=== PATIENT | female | born 1995 | race Caucasian/White ===

== ENCOUNTER 2020-10-07 11:28 | Outpatient (REF) | payer OTHER, SELFPAY ==
[2020-10-07 13:42] LABS: Hematocrit 43.5 % (37-47); Hemoglobin 14.2 g/dl (12.0-16.0); Mean Corpuscular HGB Conc 32.6 g/dl (31.0-35.0); Mean Corpuscular Hemoglobin 31.7 pg (27.0-33.0); Mean Corpuscular Volume 97.1 fL (80-98); Mean Platelet Volume 9.8 fL (9.4-12.3); Platelet Count 255 X10*3/uL (160-400); Red Blood Count 4.48 X10*6/uL (4.20-5.50); Red Cell Distribution Width 11.7 % (11.0-16.0); White Blood Count 10.4 X10*3/uL (4.8-10.8)
[2020-10-07 14:20] LABS: Alanine Aminotransferase 14 U/L (0-31); Albumin Level 4.6 g/dL (3.5-5.0); Alkaline Phosphatase 51 U/L (39-117); Anion Gap 13 (12-20); Aspartate Amino Transferase 19 U/L (5-31); Bilirubin Direct 0.2 mg/dL (0.0-0.5); Bilirubin Total 0.7 mg/dL (0.0-1.0); Blood Urea Nitrogen 20 mg/dL (9-16); Calcium 9.3 mg/dL (8.4-10.2); Carbon Dioxide 27 mmol/L (22-29); Chloride 101 mmol/L (96-108); Cholesterol 254 mg/dL; Estimated Glomerular Filt Rate > 60; Glucose Fasting 85 mg/dL (60-99); HDL Cholesterol 51 mg/dL; LDL Cholesterol Calculated 185 mg/dl; Potassium 5.2 mmol/L (3.3-5.1); Sodium 136 mmol/L (135-145); Total Protein 7.5 g/dL (6.5-8.0); Triglycerides 91 mg/dL
[2020-10-07 14:23] LABS: TSH reflex Free T4 0.36 uIU/mL (0.32-4.0)
== END 2020-10-07 11:29 | disposition home or self-care (01) ==
LOC: HO.WFDLDS 11:28
PROVIDERS: Visit Provider Hospitalist
DX: Z00.00 Encounter for general adult medical examination without abnormal findings (principal)
CPT/HCPCS: 36415; 80048; 80061; 80076; 84443; 85027

== ENCOUNTER 2020-12-05 08:15 | Outpatient (REF) | payer OTHER, SELFPAY ==
--- NOTE | ~2020-12-05 | XR_ITS ---
EXAMINATION: XR LUMBOSACRAL SPINE CLINICAL INFORMATION: Lower back pain COMPARISON: None TECHNIQUE: Three views of the lumbosacral spine. FINDINGS: There are 6 nonrib-bearing lumbar vertebral bodies. No fracture or subluxation. Vertebral body height and alignment are maintained. Disc spaces are maintained. The sacroiliac joints are symmetric. The visualized sacrum is intact. There is an IUD noted at the central pelvis. The bowel gas pattern is unremarkable. XR/XR lumbar spine 2-3V IMPRESSION: 6 nonrib-bearing lumbar vertebral bodies. Otherwise normal appearance.
== END 2020-12-05 08:16 | disposition home or self-care (01) ==
LOC: HO.HMGCX 08:15
PROVIDERS: PCP Hospitalist; Visit Provider Family Medicine
DX: M54.5 Low back pain (principal)
CPT/HCPCS: 72100

== ENCOUNTER 2021-02-21 11:20 | Outpatient (REF) | payer OTHER, SELFPAY | END 2021-02-21 11:21 | disposition home or self-care (01) | LOC: HO.LNP 11:20 | PROVIDERS: Visit Provider Hospitalist | DX: Z20.822 Contact with and (suspected) exposure to COVID-19 (principal); K52.9 Noninfective gastroenteritis and colitis, unspecified | CPT/HCPCS: U0003; U0005 ==

== ENCOUNTER → 2021-04-21 08:56 | Outpatient (REF) | payer OTHER, SELFPAY ==
--- NOTE | ~2021-04-21 | XR_ITS ---
EXAMINATION: XR SACRUM/COCCYX XR FOOT, LEFT CLINICAL INFORMATION: Low back pain. Left foot pain. Fall. COMPARISON: Lumbar spine radiographs dated 12/05/2020. TECHNIQUE: AP and lateral views of the sacrum and coccyx. AP, oblique, and lateral views of the left foot. FINDINGS: Sacrum and Coccyx: No acute fracture or subluxation. No joint space narrowing or marginal osteophytes. No osseous erosion. IUD within the pelvis. Left Foot: No acute fracture or dislocation. No joint space narrowing or marginal osteophytes. No osseous erosion. No abnormal soft tissue calcification. XR/XR foot LT min 3V IMPRESSION: SACRUM AND COCCYX: Unremarkable examination. LEFT FOOT: Unremarkable examination.
--- NOTE | ~2021-04-21 | XR_ITS ---
EXAMINATION: XR SACRUM/COCCYX XR FOOT, LEFT CLINICAL INFORMATION: Low back pain. Left foot pain. Fall. COMPARISON: Lumbar spine radiographs dated 12/05/2020. TECHNIQUE: AP and lateral views of the sacrum and coccyx. AP, oblique, and lateral views of the left foot. FINDINGS: Sacrum and Coccyx: No acute fracture or subluxation. No joint space narrowing or marginal osteophytes. No osseous erosion. IUD within the pelvis. Left Foot: No acute fracture or dislocation. No joint space narrowing or marginal osteophytes. No osseous erosion. No abnormal soft tissue calcification. XR/XR sacrum coccyx min 2V IMPRESSION: SACRUM AND COCCYX: Unremarkable examination. LEFT FOOT: Unremarkable examination.
--- NOTE | 2021-04-21 13:28 | ECG_ITS ---
Hook-up date: 2021-04-21 13:37:00 Duration: 41:07:00 Test Indications: TACHYCARDIA Medications: [id number] QRS complexes 7 Ventricular ectopics which represent <1 % of total QRS comp. * Supraventricular ectopics which represent % of total QRS comp. * Paced QRS complexs which represent % of total QRS comp. VENTRICULAR ECTOPY 7 Isolated 0 Bigeminal Cycles 0 Couplets 0 Runs 0 Beats in Runs * Beats LONGEST at * BPM at :: -- * Beats FASTEST at * BPM at :: -- SUPRAVENTRICULAR ECTOPY * Isolated * Couplets * Runs * Beats in Runs * Beats LONGEST at * BPM at :: -- * Beats FASTEST at * BPM at :: -- HEART RATES 50 MIN at 23:15:07 2021-04-21 77 AVG 128 MAX at 12:20:31 2021-04-22 LONGEST RR 1.2880 secs at 06:25:00 2021-04-22 S-T LEVELS Channel 1 - 128 mm at 13:37:00 2021-04-21 - 128 mm at 13:37:00 2021-04-21 Channel 2 - 128 mm at 13:37:00 2021-04-21 - 128 mm at 13:37:00 2021-04-21 Channel 3 - 128 mm at 03:25:61 -- - 128 mm at 03:25:61 Basic rhythm Normal sinus rhythm No long pause or profound bradycardia Rare Premature ventricular complexes Patient reported symptom correlated with NSR Referred By: Mike Carrizales Overread By: MELINA CARDENAS MD
== END ==
LOC: HO.CARD 08:56
PROVIDERS: PCP Family Medicine; Referring Provider Hospitalist; Visit Provider Family Medicine
DX: M54.5 Low back pain (principal); M79.672 Pain in left foot; R00.0 Tachycardia, unspecified
CPT/HCPCS: 72220; 73630; 93226

== ENCOUNTER → 2021-05-05 08:23 | Outpatient (BNVA) | payer OTHER, SELFPAY | PROVIDERS: PCP Family Medicine; Visit Provider Internal Medicine | DX: R07.2 Precordial pain (principal) | CPT/HCPCS: 99202 ==

== ENCOUNTER → 2021-06-04 08:27 | Outpatient (REF) | payer OTHER, SELFPAY ==
--- NOTE | 2021-06-04 08:30 | CA_ITS ---
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 The calculated ejection fraction is 64% by biplane method. - The basal inferior segment is hypokinetic. - No obvious valvular pathology seen on this study. Findings Left Ventricle Normal left ventricular cavity size. There is normal left ventricular wall thickness. The left ventricular systolic function is normal. The calculated ejection fraction is 64% by biplane method. Diastolic function is normal for age. Wall Motion Rest Echo Findings The basal inferior segment is hypokinetic. Right Ventricle Normal right ventricular cavity size and systolic function. Atria Both atria are normal in size. Aortic Valve There is a normal trileaflet aortic valve. There is no aortic valve stenosis. There is no aortic valve regurgitation. Mitral Valve The mitral valve appears normal. There is no mitral valve regurgitation. There is no mitral valve stenosis. Pulmonic Valve The pulmonic valve was not well visualized. Tricuspid Valve Normal tricuspid valve structure. There is no tricuspid valve regurgitation. The pulmonary artery systolic pressure is not calculated. Great Vessels The aortic annulus, sinuses of valsalva, and asc aorta are normal in size. Venous The inferior vena cava is normal in size and collapses greater than 50% with inspiration. Pericardium/Pleural There is a trivial pericardial effusion. Prior Study Comparison No prior study available for comparison. Recommendations, Care & Conclusions No obvious valvular pathology seen on this study. Measurements 2D Linear Measurements IVSd: 0.86 0.6-0.9/0.6-1.0 cm LVIDd: 4.87 3.9-5.3/4.2-5.9 cm LVIDd Index: 2.41 2.4-3.2/2.2-3.1 cm/m2 LVIDs: 3.70 2.0-3.6 cm LVPWd: 0.77 0.7-1.1 cm Ao Root: 3.20 2.1-3.5 cm LA Diam: 3.60 2.7-3.8/3.0-4.0 cm LAIDs Index: 1.78 1.5-2.3 cm/m2 LV Mass: 164.96 67-162/88-224 g LV Mass Index: 81.66 43-95/49-115 g/m2 LVOT Diam: 2.00 3.0+(-)1.3 cm 2D Systolic Function EF 4C: 63.60 >55% EF 2C: 63.00 >55% EF BiP: 64.30 >55% Mitral Valve MV Pk E: 0.82 MV PK A: 0.58 MV Decel Time: 155.00 E/A: 1.40 E'Lateral: 14.50 E'Medial: 10.40 E/E' Med: 7.90 E/E' Lat: 5.70 PHT: 45.00 MVA PHT: 4.89 Decel Lipscomb: 5.31 Aortic Valve AoV Pk Clint: 1.39 AoV Mn Clint: 0.98 AoV VTI: 0.26 AoV Pk Grad: 8.00 Aov Mn Grad: 4.00 ARCENIO Cont.VTI: 2.20 LVOT LVOT Pk Clint: 1.01 LVOT Mn Clint: 0.70 LVOT VTI: 0.18 LVOT Pk Grad: 4.00 LVOT Mn Grad: 2.00 LVOT Diam: 2.00 LVOT Area: 3.14 Diastolic Function MV Pk E: 0.82 MV Pk A: 0.58 E/A: 1.40 E'Medial: 10.40 E/E' Med: 7.90 E' Laterial: 14.50 E/E' Lat: 5.70 Right Ventricle TAPSE (mm): 2.39 TVS' Clint: 13.20 Tricuspid Valve RA Press: 3.00 Great Vessels Aorta Ao Root-2D: 3.20 2.0-3.7 cm Ao Asc: 3.20 2.1-3.4 cm Ao Arch: 1.90 Updated in Other Vendor System with Status of Final Arthur García MD electronically signed on 06/04/2021 12:58:43 PM with status of Final
== END ==
LOC: HO.CARD 08:27
PROVIDERS: Visit Provider Internal Medicine
DX: R07.2 Precordial pain (principal)
CPT/HCPCS: 93306

== ENCOUNTER 2021-06-06 14:08 | Outpatient (REF) | payer OTHER, SELFPAY ==
[2021-06-06 16:23] LABS: Influenza A PCR NEGATIVE (Negative); Influenza B PCR NEGATIVE (Negative); Resp Syncy Virus RNA Qual PCR NEGATIVE (Negative); SARS COV2 PCR INHOUSE NEGATIVE (Negative)
== END 2021-06-06 14:09 | disposition home or self-care (01) ==
LOC: HO.LNP 14:08
PROVIDERS: Visit Provider Family Medicine
DX: Z20.822 Contact with and (suspected) exposure to COVID-19 (principal)
CPT/HCPCS: 0241U

== ENCOUNTER → 2021-06-11 12:53 | Outpatient (BNVA) | payer OTHER, SELFPAY | PROVIDERS: PCP Family Medicine; Visit Provider Nurse Practitioner Family ==

== ENCOUNTER 2021-07-26 09:57 | Outpatient (REF) | payer OTHER, SELFPAY ==
--- NOTE | ~2021-07-26 | XR_ITS ---
EXAMINATION: XR clavicle RT, XR shoulder RT min 2V CLINICAL INFORMATION: Injury status post fall. COMPARISON: None. TECHNIQUE: Right clavicle 2 views. Right shoulder 3 views. FINDINGS: RIGHT CLAVICLE: No fracture or other bony abnormality is demonstrated. Alignment of the acromioclavicular joint is normal. RIGHT SHOULDER: No fracture or other bony abnormality demonstrated. Alignment of the glenohumeral joint is normal. XR/XR shoulder RT min 2V IMPRESSION: Normal examination.
--- NOTE | ~2021-07-26 | XR_ITS ---
EXAMINATION: XR clavicle RT, XR shoulder RT min 2V CLINICAL INFORMATION: Injury status post fall. COMPARISON: None. TECHNIQUE: Right clavicle 2 views. Right shoulder 3 views. FINDINGS: RIGHT CLAVICLE: No fracture or other bony abnormality is demonstrated. Alignment of the acromioclavicular joint is normal. RIGHT SHOULDER: No fracture or other bony abnormality demonstrated. Alignment of the glenohumeral joint is normal. XR/XR clavicle RT IMPRESSION: Normal examination.
--- NOTE | ~2021-07-26 | XR_ITS ---
EXAMINATION: XR CERVICAL SPINE CLINICAL INFORMATION: Fall. COMPARISON: None TECHNIQUE: 3 views of the cervical spine were obtained. FINDINGS: There are no prevertebral soft tissue or bony abnormalities demonstrated. No compression fractures or subluxations are identified. Alignment is maintained at the atlanto-axial articulation. The disc spaces are preserved. No endplate changes are seen. The prevertebral soft tissues are normal. The foramina are patent. XR/XR cervical spine 3V IMPRESSION: No acute fracture or traumatic malalignment.
== END 2021-07-26 09:58 | disposition home or self-care (01) ==
LOC: HO.HMGCX 09:57
PROVIDERS: PCP Hospitalist; Visit Provider Physician Assistant Medical
DX: T14.90XA Injury, unspecified, initial encounter (principal); W19.XXXA Unspecified fall, initial encounter; Y93.9 Activity, unspecified; Y92.9 Unspecified place or not applicable
CPT/HCPCS: 72040; 73000; 73030

== ENCOUNTER 2021-10-10 09:00 | Outpatient (RCR) | payer OTHER, SELFPAY ==
--- NOTE | 2021-08-26 12:31 | MHC.PT.OD ---
[facility] [place] [facility] [place] Office [place] Office [address] Claudia Randall [address] [phone] F: [phone] F: [phone] F: [phone] F: [phone] Physical Therapy Daily Note Diagnosis: Fall, unspecified fall W19.0, cervicalgia M54.2 signed by Zulema Lizama NP 08/12/21 Date of Surgery: n/a Date of Evaluation: 08/21/21 Date of Treatment: 08/26/21 Treatments to Date: Cancellations to Date: No Shows to Date: Authorized Visits: 3 Insurance End Date: Precautions/ Contraindications:hx trauma/fall to C/S and R UE Negative for fracture R shoulder /C/S Subjective: Pt expressed has returned to work, new concern in her ability to complete 35 push-ups in a minute for upcoming PT test on 09/09/20. Pt requesting modification of profile from PCP provider. Pain Score and Location: 2 Objective Flowsheet: Tests & Measures Exercises Seated Krank cycle posterior x 10 minutes for aerobic warmup. Pt expressing concern for need to complete 35 pushups in one minute for upcoming PT test- therapist spoke to referring provider in effort to have update profile- pt to fax PCP provider updated paperwork. Educated re: avoidance of activity which causes pain- trialed wall pushups x 10R, advised okay to perform floor push up slowly if not painful but would recommend wall version for now. Educated to hold if painful. Levator and R UT stretches x 20 sec hold x 4R, Scapular retraction and scapular rolls, education reL modification of gym routine avoidance over head/lateral raises/lifting tasks, encouragement for use of cable column vs free weights at this time. Corner pec stretch x 2 heights, pec minor stretch over foam roller x 10 minutes, prone middle and lower trap raises over pball x 2 set 10R (advised to perform as HEP painfree ROM Only), AAROM shoulder flexion and scaption with wand x 20 sec hold x 5R each for the L>R UE, Education encouragement to perform multi-angle rows with modification to reduce abd for upright rows, educated to avoid overhead and lateral raises. Educated re icing shoulder at end of workouts, at end of day. Educated re: CFM for bicep long head> followed by icing. IASTM TO R UT x 10 minutes with strumming/ erythema response, skin intact pre post removal. ROCKTAPE for R shoulder stability/postural support x three I strip with 4th for offloading long head bicep applied in R UT stretch. Education re: removal Trial of gentle R passive pectoralis stretch, tenderness noted AC joint and R lateral shoulder, R UT this date. Pain with attempt of floor push-ups Self care HEP sheet as noted in written chart Modalities Sensation intact. Trialed select tens unit shoulder setting set at Ch1, 3.5 mA intensity Ch2, 3.5 mA intensity with two electrode R lateral shoulder combo with ice x 10 minutes at end of session. Skin intact post removal Positive reduction in pain reported Assessment: 08/26/21: Pt presents to office today expressing concern for need to complete upcoming PT test (35 pushups in one minute on 09/09/20) after she has started to work out again in gym setting (when asked at evaluation she did not express the same concerns). She has returned to work full duty capacity. Therapist spoke to referring provider and referring provider was able to meet with patient in PT gym to discuss recommendation for updated modification of work profile/PT test. (Patient to fax form to PCP provider for needed update). Pt's AROM of R shoulder is limited/impacted by tight pectoralis and tight UT. She has weak scapular stabilizers and would benefit from continued manual therapy to address ROM, posture, strength, and exercise tasks to achieve baseline workout status. Pt has been issued a written HEP program to support these goals. She has been encouraged to continue to exercise within pain-free ranges, with education to avoid any overhead/lateral raises. She was given a wall pushup as modification and advised to hold from floor pushups at this time due to pain experienced with them. She was introduced to use of new form of stretching pattern/techniques for UE/neck/trunk with use of a foam roller and was trialed with TENS/ice to aide in R shoulder pain. She has been encouraged to ice R shoulder daily post prn pain relief. She is receiving manual therapy to neck/UT region as well as taping in effort to off-load and provide postural cues/correction. She has demonstrate symptoms of R shoulder impingement and is tender over R bicep /lateral R shoulder. She is highly motivated and exhibits excellent rehab potential. 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 Pt initially underwent xrays of R shoulder/C/S (-) fracture acute injury at urgent care facility and seen by PCP for two visits on 07/26/21 and on 08/12/21 (see notes for specifics as above). Pt was initially prescribed mm relaxers, ibuprofen (reports no longer taking anything for sx),given a sling for R UE (reports use for approx one week), and was taken OOW for two weeks. Pt has since returned to work full duty expressing still not 100% in regards to her normal sleeping position tolerance (prone) and ability to exercise at baseline level with 10-15# free weights with R UE, expressing strength not there at baseline. 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 Pt would benefit implementing a dynamic neck>core>scapular stabilization program with conjunction of manual therapy, guided specific exercise instruction for home program, possible future mechanical cervical treatment (due to pain at site of C/S and history of mechanism injury/loading/ trauma). She denies headaches this date and denies numbness/tingling/radiation of sx. She is tender at R UT, R spine of scap, and demonstrated (+) erythema with trial of IASTM post evaluation this date. She was educated in the importance of avoiding exercise activities that irritate her sx, encouraged to resume with modification avoidance of overhead weight-training, and lifting until she can be progressed in therapy environment. She expressed positive motivation level for therapy and was initiated in gentle cervical stretches (UT and levator for R) as well as start of one step scapular stabilization tasks with (+) written program. She was trialed with ROCKTAPE for supportive strap for not only postural awareness but also for pain relief with what appeared to be early positive response once applied, I can feel that. Se was advised of removal, goals of use, and sx to monitor for with use. She will be seen in PT 2x/week x 4 weeks with ongoing assessment to monitor progress and STG/LTG. Thanks for your referral. PT Plan: 2x/week x 4 weeks Short Term Goals: 1. Pt will demonstrate strength middle trap 4-/5 B. 2. Reduce neck/shoulder pain by 25%. 3. Initiate cervical stab program. 4. Centralize R UE pain to midline C/S. Penitentiary Goals: 1. Reduce R neck pain by 75%. 2. Resume normal sleep patterns/positions MOD I. 3. I HEP for cervical/postural/lumbar stab program with good body mechanics. 4. Resume weight training MOD I. 5.Strength middle, lower trap 5/5 B. Electronically signed by: Yvonne Herrera, PT, DPT
== END 2022-03-20 13:34 | disposition home or self-care (01) ==
LOC: HO.PTWFD 09:00
PROVIDERS: PCP Hospitalist; Visit Provider Hospitalist
DX: M54.2 Cervicalgia (principal)
CPT/HCPCS: 97014; 97110; 97140; 97150; 97161; 97530; 97535

== ENCOUNTER 2021-11-04 14:50 | Outpatient (REF) | payer OTHER, SELFPAY ==
[2021-11-04 15:20] LABS: COVID-19 Test Negative (Negative)
== END 2021-11-04 14:51 | disposition home or self-care (01) ==
LOC: HO.LAB 14:50
PROVIDERS: Visit Provider Internal Medicine
DX: Z20.822 Contact with and (suspected) exposure to COVID-19 (principal)
CPT/HCPCS: 87635; C9803

== ENCOUNTER 2021-12-10 09:47 | Outpatient (REF) | payer OTHER, SELFPAY | END 2021-12-10 09:48 | disposition home or self-care (01) | LOC: HO.LAB 09:47 | PROVIDERS: Visit Provider Hospitalist | DX: R30.0 Dysuria (principal) | CPT/HCPCS: 87086; 87088; 87186 ==

== ENCOUNTER 2022-02-04 10:15 | Outpatient (REF) | payer OTHER, SELFPAY ==
[2022-02-04 11:05] LABS: MANUAL DIFF FLAG NO
[2022-02-04 11:36] LABS: Basophils Absolute Auto 0.1 X10*3/uL (0.0-0.2); Basophils Percent Auto 0.7 % (0-2); Eosinophils Absolute Auto 0.2 X10*3/uL (0.0-0.4); Hematocrit 43.7 % (37.0-47.0); Hemoglobin 14.4 g/dl (12.0-16.0); Imm Gran Abs Auto 0.02 X10*3/uL (0.00-0.03); Imm Gran Pct Auto 0.3 % (0.0-0.4); Lymphocytes Absolute Auto 1.3 X10*3/uL (1.2-4.9); Lymphocytes Percent Auto 17.1 % (20-40); Mean Corpuscular Hemoglobin 30.8 pg (27.0-33.0); Mean Corpuscular Volume 93.4 fL (80.0-98.0); Mean Platelet Volume 10.4 fL (9.4-12.3); Monocytes Absolute Auto 0.6 X10*3/uL (0.1-1.2); Monocytes Percent Auto 7.8 % (2-11); Neutrophils Absolute Auto 5.5 x10*3/uL (2.0-8.3); Neutrophils Percent Auto 72.1 % (45-73); Platelet Count 264 X10*3/uL (160-400); Red Blood Count 4.68 X10*6/uL (4.20-5.50); Red Cell Distribution Width 12.4 % (11.0-16.0); White Blood Count 7.7 X10*3/uL (4.8-10.8)
[2022-02-04 12:11] LABS: Alanine Aminotransferase 20 U/L (0-31); Albumin Level 4.7 g/dL (3.5-5.0); Alkaline Phosphatase 57 U/L (39-117); Anion Gap 14 (12-20); Aspartate Amino Transferase 22 U/L (5-31); Bilirubin Total 0.2 mg/dL (0.0-1.0); Blood Urea Nitrogen 13 mg/dL (9-16); Calcium 10.2 mg/dL (8.4-10.2); Carbon Dioxide 24 mmol/L (22-29); Chloride 102 mmol/L (96-108); Estimated Glomerular Filt Rate > 60; Glucose Random 80 mg/dL (60-115); Potassium 4.6 mmol/L (3.3-5.1); Sodium 135 mmol/L (135-145); Total Protein 7.9 g/dL (6.5-8.0)
== END 2022-02-04 10:16 | disposition home or self-care (01) ==
LOC: HO.WFDLDS 10:15
PROVIDERS: Visit Provider Hospitalist
DX: R22.0 Localized swelling, mass and lump, head (principal); Z86.16 Personal history of COVID-19
CPT/HCPCS: 36415; 80053; 85025

== ENCOUNTER 2023-06-28 16:23 | Outpatient (AMB) | payer OTHER, SELFPAY ==
[2023-06-28 16:26] VITALS: BP 120/68; PULSE 71; O2SAT 98; BMI 27.6
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
== END 2023-06-28 16:57 | disposition home or self-care (01) ==
PROVIDERS: PCP Family Medicine; Visit Provider Family Medicine
DX: F41.9 Anxiety disorder, unspecified (principal); F32.A Depression, unspecified
CPT/HCPCS: 99213

== ENCOUNTER 2023-08-05 13:46 | Outpatient (AMB) | payer OTHER, SELFPAY ==
[2023-08-05 13:50] VITALS: BP 100/64; PULSE 70; O2SAT 98; BMI 27.8
--- NOTE | 2023-08-05 13:50 | A.OFFPC_ITS ---
Vital Signs 08/05/23 13:50 Height 5 ft 8 in Weight 183 lb BMI 27.8 BP 100/64 Blood Pressure Location Lt brachial Position Sitting Pulse 70 Pulse Source Pulse Oximeter Pulse Oximetry (%) 98 Oxygen Delivery Method Room Air Intake Visit Reasons: f/u anxiety/depression Intake Note: Patient is following on depression/ anxiety, and she would like to discuss PT again for back and hips. Allergies No Known Allergies Allergy (Verified 08/05/23 13:52) Tobacco use date assessed: 08/05/23 HPI f/u anxiety/depression HPI Details 28 y/o female presents to f/u anxiety an d depression. She reports her mood has been doing very well. She does have a therapist now. She continues exercising and is able to sleep well. She would like to discuss physical therapy again for her back and L hip pain. [facility] Surgical History Hx of removal of cyst [place] teeth extracted Family History Maternal Grandmother Cancer Maternal Grandmother Cancer Paternal Aunt Cancer Other Mental health disorder Substance use disorder Social History Housing: Apartment Alcohol intake: current Patient Tobacco Use Status: Former Tobacco user e-Cigarette/Vaping Use: Never Used Second Hand Smoke Exposure: No service: Yes Current occupational status: employed Cognitive needs: No Hearing needs: No Vision needs: Yes (Glasses) Questionnaire PHQ-9 Over the last 2 weeks, how often have you been bothered by any of the following problems? 1. Little interest or pleasure in doing things: not at all 2. Feeling down, depressed, or hopeless: not at all 3. Trouble falling or staying asleep, or sleeping too much: not at all 4. Feeling tired or having little energy: not at all 5. Poor appetite or overeating: not at all 6. Feeling bad about yourself - or that you are a failure or have let yourself or your family down: not at all 7. Trouble concentrating on things, such as reading the newspaper or watching television: not at all 8. Moving or speaking so slowly that other people could have noticed. Or the opposite - being so fidgety or restless that you have been moving around a lot more than usual: not at all 9. Thoughts that you would be better off or of hurting yourself in some way: not at all Total score: 0 Depression Screening Interpretation: Negative Depression Screening Done: Yes 67701 - PHQ-9 Billing: Yes Source: Developed by Drs. Karthik Chirinos, Susannah Tom, Davin Silver and colleagues, with an educational santos from [employer]. Thrive Questionnaire Date Thrive assessed: 05/05/21 RAFAEL-7 AMB Questionnaire RAFAEL-7 Date RAFAEL - 7 assessed: 08/05/23 Feeling nervous, anxious, or on edge: 0 = Not at all Not being able to stop or control worryin = Not at all Worrying too much about different things: 0 = Not at all Trouble relaxin = Not at all Being so restless that it is hard to sit still: 0 = Not at all Becoming easily annoyed or irritable: 0 = Not at all Feeling afraid as if something awful might happen: 0 = Not at all Total RAFAEL-7 score (0-4 normal; 5-9 mild; 10-14 moderate; 15-21 severe): 0 Source: Developed by Drs. Karthik Chirinos, Susannah Tom, Davin Silver and colleagues, with an educational santos from [employer]. RAFAEL-7 Assessment Billing RAFAEL-7 Assessment Tool: RAFAEL-7 Assessment 80073 Review of Systems Psych Denies anxiety and Denies depression Physical exam (Primary Care) Vital Signs: Last Vital Signs Pulse 70 08/05/23 13:50 BP 100/64 08/05/23 13:50 Pulse Ox 98 08/05/23 13:50 Oxygen Delivery Method Room Air 08/05/23 13:50 BMI result Body Mass Index 27.8 Tobacco/Smoking Status: Tobacco use Status Tobacco use date assessed 08/05/23 08/05/23 13:55 Patient Tobacco Use Status Former Tobacco user 08/05/23 13:55 e-Cigarette/Vaping Use Never Used 08/05/23 13:55 PHQ-9: PHQ-9 Score PHQ-9: Total score 0 08/05/23 14:30 Depression Screening Interpretation: Negative Thrive Assessment: Date of Thrive Assessment Date Thrive assessed 05/05/21 08/05/23 13:55 Office Procedures Flu Questionnaire Does the patient have a severe egg allergy?: No Does the patient have severe life threatening allergies?: No Does the patient have a fever or illness today?: No Has the patient ever had Guillain-Brainard Syndrome?: No Has the patient ever had any past reaction to a flu shot?: No Immunizations flu vacc [id number] 6mos up(PF) 60 mcg(15 mcgx4)/0.5 mL IM syringe Performing Provider: Mike Carrizales MD Performing Location: [facility] [place] Family Medicine Documented (not given) by: Danitza Emanuel CMA on 08/05/23 14:28 Reason Not Given: Patient Refused Assessment and Plan Assessment & Plan (1) Anxiety and depression: Code(s): F41.9 - Anxiety disorder, unspecified; F32.A - Depression, unspecified Plan: Patient?is?doing?well. Has?a?therapist Continue?to?follow?with?therapist.??Let?me?know?if?any?further?problems. (2) Lumbar radiculopathy: Code(s): M54.16 - Radiculopathy, lumbar region Plan: Resume?physical?therapy Advised?NSAIDs,?ice/heat?and?gentle?stretching?when?improving, while?awaiting?visit?with?PT (3) Yeast dermatitis: Code(s): B37.2 - Candidiasis of skin and nail Plan: Requests?renewal?of?her?referral?to?Dermatology - referral?may (4) Left hip pain: Code(s): M25.552 - Pain in left hip Plan: PT?as?above Orders: Orders Influenza [id number] Immunization Today Z23 - Encounter for immunization PT Evaluation and Treatment Today M25.552 - Pain in left hip, M54.5 - Low back pain Referrals Dermatology Referral B37.2 - Candidiasis of skin and nail, R21 - Rash and other nonspecific skin eruption, R22.0 - Localized swelling, mass and lump, head Medications: Discontinued cyclobenzaprine Discontinued Reason: Patient no longer taking 10 mg PO TID PRN 30 tabs 1RF muscle spasm Coding Level of Care Code Est Pt Level 4 (80824) Diagnoses Anxiety and depression F41.9; F32.A Lumbar radiculopathy M54.16 Yeast dermatitis B37.2 Left hip pain M25.552 Additional Codes RAFAEL-7 Assessment Billing - RAFAEL-7 Assessment Tool: RAFAEL-7 Assessment 77346 ([id number])
== END 2023-08-05 14:49 | disposition home or self-care (01) ==
PROVIDERS: PCP Family Medicine; Visit Provider Family Medicine
DX: F41.9 Anxiety disorder, unspecified (principal); F32.A Depression, unspecified; M54.16 Radiculopathy, lumbar region; B37.2 Candidiasis of skin and nail; M25.552 Pain in left hip
CPT/HCPCS: 99214

== ENCOUNTER 2023-12-15 09:30 | Outpatient (AMB) | payer OTHER, SELFPAY ==
--- NOTE | 2023-12-15 09:47 | MHC.OFFWIV ---
Intake Vital Signs 12/15/23 09:48 Height 5 ft 8 in Weight 185 lb 6 oz BMI 28.2 BP 120/76 Blood Pressure Location Lt brachial Position Sitting Pulse 84 Pulse Source Pulse Oximeter Temp 98.3 F Temp Source Temporal Artery Scan Pulse Oximetry (%) 97 Oxygen Delivery Method Room Air Intake Visit Reasons: EP Sore throat/nose runny, diff breathing Intake Note: Pt presents to the office today for c/o sore throat, difficulty breathing, and ear pain in both ears that started about 3 days ago. Patient Tobacco Use Status: Former Tobacco user Allergies No Known Allergies Allergy (Verified 12/15/23 09:49) HPI HPI Comments History of Present Illness Details Patient is a 28yo F who presents to office with cough complaint She states bad sore throat, ear pain and congestion Ongoing now for 3 days She denies fever or chills She has been trying sudafed without relief ST feels like stre No covid test taken Minimal cough with clearing of throat but otherwise none PFSH Surgical History [place] teeth extracted Hx of removal of cyst Family History Maternal Grandmother Cancer Maternal Grandmother Cancer Paternal Aunt Cancer Other Mental health disorder Substance use disorder Social History Housing: Apartment Alcohol intake: current Patient Tobacco Use Status: Former Tobacco user e-Cigarette/Vaping Use: Never Used Second Hand Smoke Exposure: No service: Yes Current occupational status: employed Cognitive needs: No Hearing needs: No Vision needs: Yes (Glasses) Review of Systems Const Denies body aches, Denies chills, Reports fatigue and Denies fever(s) ENT Reports otalgia, Reports nasal discharge, Denies sinus pain, Reports sore throat, Denies throat swelling and Denies tongue swelling Card Denies chest pain and Denies dyspnea Resp Denies dyspnea Endo Reports fatigue Aller/Immun Denies throat swelling and Denies tongue swelling Physical Exam Vital Signs: Last Vital Signs Temp 98.3 F 12/15/23 09:48 Pulse 84 12/15/23 09:48 BP 120/76 12/15/23 09:48 Pulse Ox 97 12/15/23 09:48 Oxygen Delivery Method Room Air 12/15/23 09:48 BMI result Body Mass Index 28.2 General: Non-toxic, NAD. Speaking full sentences. Skin: Warm dry throughout Eye: EOMI HENT: Airway patent. Uvula midline. Minimal pharyngeal erythema without exudates or edema. No TAX ADJUSTER. Bilateral canals clear. TM non-erythematous, non-bulging. No TM perforation or hemotympanum noted. Lymph: + lymphadenopathy tonsillar bilaterally. Respiratory: CTA bilaterally. No wheezes, rales or rhonchi Cardiac: RRR. No murmur MSK: Full ROM extremities. Neurology: A/O. No aphasia or facial droop. Gait without abnormality Psych: Good mood and affect Results AMB Rapid Strep AMB Rapid Strep Negative Last Edit by Yvonne Gibson CMA on 12/15/23 09:57 Results Reviewed Results Reviewed: Laboratory Last Values Strep Scn Rapid Clinic Negative 12/15/23 09:57 Assessment & Plan Assessment & Plan (1) Upper respiratory infection: Code(s): J06.9 - Acute upper respiratory infection, unspecified Qualifiers: URI type: unspecified viral URI Qualified Code(s): J06.9 - Acute upper respiratory infection, unspecified Plan: Patient seen and evaluated. Strep: negative Centor score is 1. No culture indicated covid binexNow ordered; negative Discussed symptomatic management Patient gave verbal understanding and had no additional questions or concerns at time of discharge All questions answered Orders: Orders AMB Rapid Strep Screen Today Z13.9 - Encounter for screening, unspecified BinaxNOW Covid-19 Ag Today J06.9 - Acute upper respiratory infection, unspecified Coding Level of Care Code Est Pt Level 3 (18998) Diagnoses Viral upper respiratory tract infection J06.9 URI type: unspecified viral URI
[2023-12-15 09:48] VITALS: BP 120/76; PULSE 84; TEMP 36.8; O2SAT 97; BMI 28.2
== END 2023-12-15 10:28 | disposition home or self-care (01) ==
PROVIDERS: PCP Nurse Practitioner Family; Visit Provider Physician Assistant
DX: J06.9 Acute upper respiratory infection, unspecified (principal); J02.9 Acute pharyngitis, unspecified
CPT/HCPCS: 87880; 99213

== ENCOUNTER 2023-12-15 10:02 | Outpatient (REF) | payer OTHER, SELFPAY ==
[2023-12-15 10:40] LABS: Binax Internal Control QC Valid; Binax Now Covid-19 Ag Negative (Negative); Binax Performed by: HO.BONILM
== END 2023-12-15 10:03 | disposition home or self-care (01) ==
LOC: HO.HMGCLDS 10:02
PROVIDERS: Visit Provider Physician Assistant
DX: J06.9 Acute upper respiratory infection, unspecified (principal)
CPT/HCPCS: 87811

== ENCOUNTER 2023-12-23 13:17 | Outpatient (AMB) | payer OTHER, SELFPAY ==
--- NOTE | 2023-12-23 13:25 | A.OFFPC_ITS ---
Vital Signs 12/23/23 13:26 Height 5 ft 8 in Weight 182 lb BMI 27.7 BP 114/62 Blood Pressure Location Rt brachial Position Sitting Pulse 78 Pulse Source Pulse Oximeter Temp 98.9 F Temp Source Temporal Artery Scan Pulse Oximetry (%) 98 Oxygen Delivery Method Room Air Intake Visit Reasons: JERRY from [employer] Required: No Allergies No Known Allergies Allergy (Verified 12/23/23 13:29) Medication List - Last Reconciled 12/23/23 by CATHERINE Zelaya fluocinolone and shower cap 0.01 % ea topical hydrocortisone 1% (Anti-Itch (hydrocortisone)) 1 appl topical BID-TID PRN ketoconazole 2% topical mometasone 0.1% topical xddmbokxozoz-Rr-gilp-minerals tabs PO Tobacco use date assessed: 08/05/23 Dental Screening Dental Screen Date: 06/28/23 Did you have a dental visit in the last 12 months?: Yes Did you have a dental problem in the last 6 months where you did not have access to dental care?: Yes Was dental information given to patient?: Patient declined HPI HPI Comments History of Present Illness Details 28-year-old female generalized anxiety d isorder, MDD polyarthralgia, HPV, hyperlipidemia, Social: Surgery: None Family hx: Maternal Grandmother and Maternal Great Aunt - of rare cancer Paternal Grandmother - of breast cancer Health Maintenance: Pap reports UTD. Specialist: [employer] CARDIAC MRI 06/17/2021 - states this was done and wNL; i don't have this report. ECHOCARDIOGRAM 06/04/2021 SHOWS HYPOKINESIS OTHERWISE WITHIN NORMAL LIMITS Here today for CPE Not sleeping; when she wakes hand and feet hurt so bad. Sleeping for 1 hour and then waking. Also getting sick like 1 time per month. Strep + 7 times in the last 12 months. Currently on Amoxicillin. Does not like to take meds; feels always has side effects. [facility] Medical History (Updated 12/23/23 @ 15:45 by CATHERINE Zelaya) Anxiety and depression Racing heart beat Polyarthralgia Surgical History Berk[place] teeth extracted Hx of removal of cyst Family History Maternal Grandmother Cancer Maternal Grandmother Cancer Paternal Aunt Cancer Other Mental health disorder Substance use disorder Social History Housing: Apartment Alcohol intake: current Patient Tobacco Use Status: Former Tobacco user e-Cigarette/Vaping Use: Never Used Second Hand Smoke Exposure: No service: Yes Current occupational status: employed Cognitive needs: No Hearing needs: No Vision needs: Yes (Glasses) Questionnaire PHQ-9 Over the last 2 weeks, how often have you been bothered by any of the following problems? 1. Little interest or pleasure in doing things: not at all 2. Feeling down, depressed, or hopeless: not at all 3. Trouble falling or staying asleep, or sleeping too much: nearly every day 4. Feeling tired or having little energy: nearly every day 5. Poor appetite or overeating: several days 6. Feeling bad about yourself - or that you are a failure or have let yourself or your family down: not at all 7. Trouble concentrating on things, such as reading the newspaper or watching television: several days 8. Moving or speaking so slowly that other people could have noticed. Or the opposite - being so fidgety or restless that you have been moving around a lot more than usual: not at all 9. Thoughts that you would be better off or of hurting yourself in some way: not at all Total score: 8 Depression Screening Interpretation: Negative Depression Screening Done: Yes 33572 - PHQ-9 Billing: Yes Source: Developed by Drs. Karthik Chirinos, Susannah Tom, Davin Silver and colleagues, with an educational santos from [employer]. Thrive Questionnaire Date Thrive assessed: 05/05/21 I am a: Patient What is your living situation today?: I have a steady place to live Within the past 12 months, did the food you bought not last and you didn't have the money to get more?: Never true Within the past 12 months, did you worry whether your food would run out before you got money to buy more?: Never true Do you have trouble paying for medicines?: No Do you have trouble getting transportation to medical appointments?: No Do you have trouble paying your heating and electricity bill?: No Do you have trouble taking care of your child, family member or friend?: No Do you have trouble with day-to-day activities such as bathing, preparing meals, shopping, managing finances, etc.?: No Are you currently unemployed and looking for a job?: No Are you interested in more education?: No Please select the resources that you would like help with: None Currently or been in a relationship where the following occur: no concerns reported THRIVE Score: 0 AUDIT C Alcohol Use Questionnaire (AUDIT-C) 1. How often do you have a drink containing alcohol?: Never Total Score: 0 Score Reviewed/Action Taken: Yes RAFAEL-7 AMB Questionnaire RAFAEL-7 Date RAFAEL - 7 assessed: 08/05/23 Feeling nervous, anxious, or on edge: 0 = Not at all Not being able to stop or control worryin = Not at all Worrying too much about different things: 0 = Not at all Trouble relaxin = More than half the days Being so restless that it is hard to sit still: 2 = More than half the days Becoming easily annoyed or irritable: 1 = Several days Feeling afraid as if something awful might happen: 0 = Not at all Total RAFAEL-7 score (0-4 normal; 5-9 mild; 10-14 moderate; 15-21 severe): 5 Source: Developed by Drs. Karthik Chirinos, Susannah Tom, Davin Silver and colleagues, with an educational santos from [employer]. RAFAEL-7 Assessment Billing RAFAEL-7 Assessment Tool: RAFAEL-7 Assessment 65617 Review of Systems Const Details: Constitutional: Denies fever. Skin: Denies rash. Eye: Denies eye pain. Respiratory: Denies shortness of breath Gastrointestinal: Denies nausea, vomiting or abdominal pain. Cardiovascular: Denies chest pain and syncope. Genitourinary: Denies dysuria. Musculoskeletal: Denies back pain and extremity pain. Neurologic: Denies headaches, confusion, and weakness. Psychiatric: Denies suicidal thoughts and substance abuse. Physical exam (Primary Care) Vital Signs: Last Vital Signs Temp 98.9 F 12/23/23 13:26 Pulse 78 12/23/23 13:26 BP 114/62 12/23/23 13:26 Pulse Ox 98 12/23/23 13:26 Oxygen Delivery Method Room Air 12/23/23 13:26 BMI result Body Mass Index 27.7 Tobacco/Smoking Status: Tobacco use Status Tobacco use date assessed 08/05/23 12/23/23 13:29 Patient Tobacco Use Status Former Tobacco user 12/23/23 13:29 e-Cigarette/Vaping Use Never Used 12/23/23 13:29 PHQ-9: PHQ-9 Score PHQ-9: Total score 8 12/23/23 14:47 Depression Screening Interpretation: Negative Thrive Assessment: Date of Thrive Assessment Date Thrive assessed 05/05/21 12/23/23 13:29 Currently or been in a relationship where the following occur: no concerns reported Advance Care Planning discussion: Exists, not on file Date of discussion: 12/23/23 Forms completed: Health Care Proxy Time spent: 1-15 minutes, not on file Const Other: General: Well developed, well nourished, in no acute distress. Appears stated age. Head: Normocephalic, atraumatic. Eyes: Pupils are equal, round and reactive to light and accommodation. Conjunctivae are clear. Vision grossly normal. Ears:EACS WNL, right TM intact and clear, left TM intact with positive effusion Nose: Patent, scant mucoid discharge, positive parks sinus tenderness with palpation Mouth: There are no ulcers or lesions noted. No inflammation, no post nasal drip, no plaques nor exudates. Neck: Supple, thyromegaly. + anterior and posterior cervical adenopathy Lungs: Clear to auscultation bilaterally. No rales, rhonchi or wheeze noted. Good air flow in all medrano. Heart: Regular rate and rhythm. No murmurs, click, rubs or gallops are noted. Abdomen: Bowel sounds present in all quadrants. The abdomen is soft, nontender, with no masses or organomegaly noted. No hernias are noted. Musculoskeletal: Joints are nontender, without swelling, redness, or effusions. Range of motion is observed to be normal. Pulses: Peripheral pulses are equal and palpable bilaterally. Extremities: No clubbing, cyanosis nor edema is noted. Neurologic: Gait and station normal. Cranial Nerves 2-12 intact. Motor strength grossly symmetrical and intact. No sensory loss. Balance normal. Skin: No rashes, ulcers, or lesions noted. Turgor is good. Skin color is good. Hair and nails are without abnormalities. Psych: Normal eye contact, affect and mood appropriate, and normal interactions. Patient is alert and appropriate to context. Assessment and Plan Assessment & Plan (1) Encounter for general adult medical examination with abnormal findings: Code(s): Z00.01 - Encounter for general adult medical examination with abnormal findings (2) Recurrent infections: Comment: We will check some labs. Refer to ENT as she reports a positive strep test x7 in the last 12 months. Currently on amoxicillin. Advised to continue until therapy complete. Further endorses sleep issues. We will check a sleep study. If sleep study is negative we will consider MDD or GERD as a cause of disrupted sleep. Code(s): B99.9 - Unspecified infectious disease (3) Recurrent streptococcal pharyngitis: Comment: Refer to ENT Code(s): J02.0 - Streptococcal pharyngitis (4) MDD (major depressive disorder), recurrent episode: Comment: Not currently on medications are in counseling. We will need to continue to follow the PHQ going forward. Code(s): F33.9 - Major depressive disorder, recurrent, unspecified Qualifiers: Major depression episode severity: mild Qualified Code(s): F33.0 - Major depressive disorder, recurrent, mild (5) RAFAEL (generalized anxiety disorder): Comment: See MDD care plan Code(s): F41.1 - Generalized anxiety disorder Plan This note is constructed using voice recognition software. While every effort has been made to ensure accuracy in shrinking machine operator, still errors may have been included Sometimes, these errors may affect the content or meaning of the given sentence . Time spent addressing the problem issue presented at today's wellness exam was 15 minutes. This time is above and beyond the time needed for her wellness exam. This includes time spent before the visit reviewing the chart, time spent during the visit, and time spent after the visit on documentation Orders: Orders RT home sleep study Today G47.10 - Hypersomnia, unspecified, R53.83 - Other fatigue Comprehensive [place]. Panel Fast Today B99.9 - Unspecified infectious disease Hemoglobin A1c Today B99.9 - Unspecified infectious disease Lipid Panel Today B99.9 - Unspecified infectious disease Complete Blood Count no Diff Today B99.9 - Unspecified infectious disease Monotest Today B99.9 - Unspecified infectious disease Vitamin B12 and Folate Today B99.9 - Unspecified infectious disease Microalbumin, Random (w Creat) Today B99.9 - Unspecified infectious disease Vitamin D 1,25 dihydroxy Today B99.9 - Unspecified infectious disease Streptolysin O Antibody Today B99.9 - Unspecified infectious disease Immunoglobulins,IgG IgA IgM Today B99.9 - Unspecified infectious disease Referrals Ear/Nose/Throat Referral J02.0 - Streptococcal pharyngitis Patient Instructions: Return to office in about 6 weeks to follow up on labs as well as sleep study. Health screenings for women ages 18 to 39 You should visit your health care provider from time to time, even if you are healthy. The purpose of these visits is to: Screen for medical issues Assess your risk for future medical problems Encourage a healthy lifestyle Update vaccinations and other preventive care services Help you get to know your provider in case of an illness Information Even if you feel fine, you should still see your provider for regular checkups. These visits can help you avoid problems in the future. For example, the only way to find out if you have high blood pressure is to have it checked regularly. High blood sugar and high cholesterol levels also may not have any symptoms in the early stages. A simple blood test can check for these conditions. There are specific times when you should see your provider or receive specific health screenings. The [place] Preventive Services Task Force publishes a list of recommended screenings. Below are screening guidelines for women ages 18 to 39. BLOOD PRESSURE SCREENING Your blood pressure should be checked at least once every 3 to 5 years if: Your blood pressure is in the normal range (top number less than 120 mm Hg and bottom number less than 80 mm Hg) You don't have risk factors for high blood pressure Ask your provider if you need your blood pressure checked more often if: The top number is 120 to 129 mm Hg or the bottom number is 70 to 79 mm Hg You have diabetes, heart disease, kidney problems, are overweight, or have certain other health conditions You have a first-degree relative with high blood pressure You are Black You had high blood pressure during a If the top number is 130 mm Hg or greater or the bottom number is 80 mm Hg or greater, this is considered stage 1 hypertension. Schedule an appointment with your provider to learn how you can reduce your blood pressure. Watch for blood pressure screenings in your area. Ask your provider if you can stop in to have your blood pressure checked. BREAST CANCER SCREENING Experts do not agree about the benefits of breast self-exams in finding breast cancer or saving lives. Talk to your provider about what is best for you. A screening mammogram is not recommended for most women under age 40. Your provider may discuss and recommend mammograms, MRI scans, or ultrasounds if you have an increased risk for breast cancer, such as: A mother or sister who had breast cancer at a young age (most often starting screening earlier than the age the close relative was diagnosed) You carry a high-risk genetic marker CERVICAL CANCER SCREENING Cervical cancer screening should start at age 21 years unless your provider advises otherwise. After the first test: Women ages 21 through 29 should have a Pap test every 3 years. Exoprts do not agree on whether HPV testing is recommended for this age group. Women ages 30 through 65 should be screened with either a Pap test every 3 years or the HPV test every 5 years or both tests every 5 years (called cotesting ). Women who have been treated for precancer (cervical dysplasia) should continue to have Pap tests for 20 years after treatment or until age 65, whichever is longer. If you have had your uterus and cervix removed (total hysterectomy), and you have not been diagnosed with cervical cancer or precancer (high grade cervical neoplasia), you do not need cervical cancer screening. CHOLESTEROL SCREENING Cholesterol screening should begin at: Age 45 for women with no known risk factors for coronary heart disease Age 20 for women with known risk factors for coronary heart disease Repeat cholesterol screening should take place: Every 5 years for women with normal cholesterol levels More often if changes occur in lifestyle (including weight gain and diet) More often if you have diabetes, heart disease, kidney problems, or certain other conditions DIABETES SCREENING You should be screened for diabetes starting at age 35 and then repeated every 3 years if you have no risk factors for diabetes. Screening may need to start earlier and be repeated more often if you have other risk factors for diabetes, such as: You have a first degree relative with diabetes. You are overweight or have obesity. You have high blood pressure, prediabetes, or a history of heart disease. Screening for diabetes should be done if you are planning to become and you are overweight and have other risk factors such as high blood pressure. DENTAL EXAM Go to the dentist once or twice every year for an exam and cleaning. Your dentist will evaluate if you need more frequent visits. EYE EXAM Have an eye exam every 5 to 10 years before age 40. If you have vision problems, have an eye exam every 2 years or more often if recommended by your provider. You should have an eye exam that includes an examination of your retina (back of your eye) at least every year if you have diabetes. IMMUNIZATIONS Commonly needed vaccines include: Flu shot: get one every year. COVID-19 vaccine: ask your provider what is best for you. Tetanus-diphtheria and acellular pertussis (Tdap) vaccine: have one at or after age 19 as one of your tetanus-diphtheria vaccines if you did not receive it as an adolescent. Tetanus-diphtheria: have a booster (or Tdap) every 10 years. Varicella vaccine: receive 2 doses if you never had chickenpox or the varicella vaccine. Hepatitis B vaccine: receive 2, 3, or 4 doses, depending on your exact circumstances. Measles, mumps, and rubella (MMR) vaccine: receive 1 to 2 doses if you are not already immune to MMR. Your provider can tell you if you are immune. Ask your provider about the human papillomavirus (HPV) vaccine if: You have not received the HPV vaccine in the past You have not completed the full vaccine series (you should catch up on this shot) Ask your provider if you should receive other immunizations if you have certain health problems that increase your risk for some diseases such as pneumonia. INFECTIOUS DISEASE SCREENING Women who are sexually active should be screened for chlamydia and gonorrhea up until age 25. Women 25 years and older should be screened for chlamydia and gonorrhea if at high risk. Screening for hepatitis C: All adults ages 18 to 79 should get a one-time test for hepatitis C. people should be screened at every . Screening for human immunodeficiency virus (HIV): All people ages 15 to 65 should get a one-time test for HIV. Depending on your lifestyle and medical history, you may also need to be screened for infections such as syphilis and HIV, as well as other infections. PHYSICAL EXAM All adults should visit their provider from time to time, even if they are healthy. The purpose of these visits is to: Screen for disease Assess your risk of future medical problems Encourage a healthy lifestyle Update your vaccinations and other preventive care services Maintain a relationship with a provider in case of an illness Your height, weight, and BMI should be checked at every exam. During your exam, your provider may ask you about: Depression and anxiety Diet and exercise Alcohol and tobacco use Safety issues, such as using seat belts, smoke detectors, and intimate partner violence Your medicines and risk for interactions SKIN SELF-EXAM Your provider may check your skin for signs of skin cancer, especially if you're at high risk, such as if you: Have had skin cancer before Have close relatives with skin cancer Have a weakened immune system OTHER SCREENING Talk with your provider about colon cancer screening if you have a strong family history of colon cancer or polyps, or if you have had inflammatory bowel disease or polyps yourself. Routine bone density screening of women under 40 is not recommended. Coding Level of Care Code Est Pt Level 3 (21762) Est Pt Prev Care 18-39y(84006) Diagnoses Encounter for general adult medical examination with abnormal findings Z00.01 Recurrent infections B99.9 Recurrent streptococcal pharyngitis J02.0 Mild episode of recurrent major depressive disorder F33.0 Major depression episode severity: mild RAFAEL (generalized anxiety disorder) F41.1 Additional Codes RAFAEL-7 Assessment Billing - RAFAEL-7 Assessment Tool: RAFAEL-7 Assessment 81042 ([id number]) Vital Signs *Quality* - Advance Care Planning discussion: Exists, not on file ([id number]) Vital Signs *Quality* - Time spent: 1-15 minutes, not on file ([id number])
--- NOTE | 2023-12-23 13:25 | MHC.PC.OV ---
Intake Visit Reasons: JERRY from [employer] Allergies No Known Allergies Allergy (Verified 12/15/23 09:49) Tobacco use date assessed: 08/05/23 Dental Screening Dental Screen Date: 06/28/23 [facility] Medical History (Updated 12/22/23 @ 13:01 by Noreen Zepeda, [facility]) Anxiety and depression Racing heart beat Polyarthralgia Surgical History Lena teeth extracted Hx of removal of cyst Family History Maternal Grandmother Cancer Maternal Grandmother Cancer Paternal Aunt Cancer Other Mental health disorder Substance use disorder Social History Housing: Apartment Alcohol intake: current Patient Tobacco Use Status: Former Tobacco user e-Cigarette/Vaping Use: Never Used Second Hand Smoke Exposure: No service: Yes Current occupational status: employed Cognitive needs: No Hearing needs: No Vision needs: Yes (Glasses) Questionnaire Thrive Questionnaire Date Thrive assessed: 05/05/21 RAFAEL-7 AMB Questionnaire RAFAEL-7 Date RAFAEL - 7 assessed: 08/05/23 Source: Developed by Drs. Karthik Chirinos, Susannah Tom, Davin Silver and colleagues, with an educational santos from [employer]. Physical exam (Primary Care) Tobacco/Smoking Status: Tobacco use Status Tobacco use date assessed 08/05/23 12/15/23 09:28 Patient Tobacco Use Status Former Tobacco user 12/15/23 09:52 e-Cigarette/Vaping Use Never Used 12/15/23 09:28 Thrive Assessment: Date of Thrive Assessment Date Thrive assessed 05/05/21 12/15/23 09:28 Coding
[2023-12-23 13:26] VITALS: BP 114/62; PULSE 78; TEMP 37.2; O2SAT 98; BMI 27.7
== END 2023-12-23 14:01 | disposition home or self-care (01) ==
PROVIDERS: PCP Nurse Practitioner Family; Visit Provider Nurse Practitioner Family
DX: Z00.01 Encounter for general adult medical examination with abnormal findings (principal); F33.0 Major depressive disorder, recurrent, mild; B99.9 Unspecified infectious disease; J02.0 Streptococcal pharyngitis; F41.1 Generalized anxiety disorder
CPT/HCPCS: 1124F; 99212; 99395

== ENCOUNTER 2023-12-28 08:04 | Outpatient (REF) | payer OTHER, SELFPAY ==
[2023-12-28 09:22] LABS: Hematocrit 43.7 % (37.0-47.0); Hemoglobin 14.4 g/dl (12.0-16.0); Mean Corpuscular Hemoglobin 31.5 pg (27.0-33.0); Mean Corpuscular Volume 95.6 fL (80.0-98.0); Mean Platelet Volume 10.4 fL (9.4-12.3); Platelet Count 270 X10*3/uL (160-400); Red Blood Count 4.57 X10*6/uL (4.20-5.50)
[2023-12-28 09:33] LABS: Estimated Average Glucose 108 mg/dL; Hemoglobin A1c % 5.4 % (<6.0)
[2023-12-28 10:22] LABS: Alanine Aminotransferase 13 U/L (0-31); Albumin Level 4.4 g/dL (3.5-5.0); Alkaline Phosphatase 57 U/L (39-117); Anion Gap 10 (12-20); Aspartate Amino Transferase 15 U/L (5-31); Bilirubin Total 0.5 mg/dL (0.0-1.0); Blood Urea Nitrogen 18 mg/dL (9-16); Calcium 9.3 mg/dL (8.4-10.2); Carbon Dioxide 27 mmol/L (22-29); Chloride 105 mmol/L (96-108); Cholesterol 257 mg/dL (<200); Estimated Glomerular Filt Rate > 60; Glucose Fasting 82 mg/dL (60-99); HDL Cholesterol 52 mg/dL (>40); LDL Cholesterol Calculated 190 mg/dL (<100); Potassium 4.1 mmol/L (3.3-5.1); Sodium 138 mmol/L (135-145); Total Protein 7.7 g/dL (6.5-8.0); Triglycerides 75 mg/dL (<150)
[2023-12-28 11:35] LABS: Creatinine Urine 84.04 mg/dL; Microalbumin Urine < 5.0 mg/L
[2023-12-28 12:02] LABS: Monotest Negative (Negative)
[2023-12-28 12:35] LABS: Folate 8.8 ng/mL (> or = 4.0); Vitamin B12 943 pg/mL (200-900)
[2023-12-29 16:19] LABS: Streptolysin O Antibody 491 IU/mL (<200)
[2023-12-30 22:43] LABS: IgA 220 mg/dL (47-310); IgG 1225 mg/dL (600-1640); IgM 182 mg/dL (50-300)
[2024-01-01 05:18] LABS: VITAMIN D (1,25 OH) D3 55 pg/mL; Vit D (1,25-Dihydroxy) Total 55 pg/mL (18-72); Vitamin D (1,25 OH) D2 <8 pg/mL
== END 2023-12-28 08:05 | disposition home or self-care (01) ==
LOC: HO.LAB 08:04
PROVIDERS: PCP Nurse Practitioner Family; Visit Provider Nurse Practitioner Family
DX: Z13.6 Encounter for screening for cardiovascular disorders (principal); B99.9 Unspecified infectious disease
CPT/HCPCS: 36415; 80053; 80061; 82043; 82570; 82607; 82652; 82746; 82784; 83036; 85027; 86060; 86308

== ENCOUNTER 2024-01-24 14:00 | Outpatient (RCR) | payer OTHER, SELFPAY ==
--- NOTE | 2023-11-19 15:30 | MHC.PT.EP ---
[facility] [place] Office [place] Office [place] [facility] [address] Claudia Randall [address] [phone] F: [phone] F: [phone] F: [phone] F: [phone] Physical Therapy Plan of Care Date of Evaluation: 11/19/23 Date of Surgery: Diagnosis: Low back pain, unspecified M54.40, M25.552 Pain in left hip, Low back pain, Pain in L hip date of referral 11/03/[address] 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 Pt cannot pinpoint onset of sx to a specific injury or trauma. More recent PT referral was made 11/03/[address] Carrizales. Pt exhibits tightness of L>R hip flexor, (+) anterior innominate rotation, tightness of thoracic and lumbar paraspinals, and decreased hip extension/abductor/core strength. Will benefit from ongoing education re: HEP, educate re: positions to try for home today (positive response to prone lying over 2 pillow with L proximal/posterior hip centralization> lumbar, hip flexor stretching kneeling and standing). Pt would benefit for treatment twice weekly x 6 weeks to address impairments, implement HEP, and restore functional mobility tolerance for running, high impact sports/ job requirements. Pt expresses love for jogging but is currently having sx and has shifted to the elliptical due to back and hip pain. Frequency and Duration: The patient will be seen 2x/week x 6 weeks Short Term Goals: 1. Pt will centralize L lateral hip pain to upper buttocks. 2. Pt will demonstrate strength R hip abductors to 4+/5. 3. Pt will exhibit negative lumbar instability testing. 4. Improve hip flexor flexibility by 25%. [employer] Goals: 1. Strength R>L hip abd 5/5. 2. Resume jogging 2 miles without sx back pain >2/10. 3. I HEP for body mechanics/self care. 4. Resume sleeping MOD I with sx <2/10. 5. Negative lumbar instability. 6. SLS 10 seconds with good core strength/no valgus of knees. Treatment Plan: Modalities to reduce pain, spasms and effusion. Manual therapy to restore motion and function. Therapeutic exercise to improve strength and flexibility. Neuromuscular re-education for posture and balance. Therapeutic activities to return to functional activities of daily living. Electronically signed by: Yvonne Herrera PT, DPT Please sign and return to therapist. Thank you for your referral.
--- NOTE | 2024-02-07 07:31 | MHC.PT.OD ---
[facility] [place] Office [place] Office [place] Office [address] Claudia Randall [address] [phone] F: [phone] F: [phone] F: [phone] F: [phone] Physical Therapy Daily Note Diagnosis: Low back pain, unspecified M54.40, M25.552 Pain in left hip, Low back pain, Pain in L hip date of referral 11/03/[address] Carrizales Date of Surgery: Date of Evaluation: 11/19/23 Date of Treatment: 01/24/24 Treatments to Date: 6 Cancellations to Date: No Shows to Date: Authorized Visits: 17 Insurance End Date: 03/02/24 Precautions/ Contraindications:hx trauma/fall to C/S and R UE Negative for fracture R shoulder /C/S Subjective: Pt has not been to PT since 01/05/24. Reports her back is better than when she started PT but still bothering her quite a bit, continues to wake her from a sound sleep a few days per week. 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 Right sidebending near full ROM. (+) squish test on L, (+) ttp L hip flexor, scour test (+) on L. Fair bridge tolerance with pain. Admits to backing off from bridging/core exercises due to surge of sx with previous trials. Has been compliant with hip flexor stretches but limited improvement post sx. (+)L ELISABET deep. (+) L anterior innominate rotation. MET correction for R on L sacral rotation with limited relief reported. Negative SLR. Painful with PROM L hip end range flexion/ IR/ER. Reports shooting pain with attempt of screening for Mike test (improved ROM for hip flexor and quad length since initial eval). Review of hip flexor stretches, trunk stretches, HS stretches, prone lying>prone on elbows. Program for encouragement include trial of aquatics. Pt has limited tolerance for sitting/standing. Pt waking at night due to sx no 1-2x/weekly when previously was everynight. Has relief with prone lying over 2-3 pillow, initial poor tolerance for hooklying now able to perform with some relief with pillow under knees. MET correction for innominate rotation for L sided rotation Modalities Assessment: Pt arrives to PT today (was last seen on 01/05/24), reports conflicting work schedule difficulty getting time off for PT. Pt has attended 6 session of PT to date, start of care 11/19/23. Pt has expressed some improved tolerance for sleeping position (was previously waking often daily at night and now reduced to 1-2x/weekly). 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 Reports history of lifting tires over a year ago, history of fall(s) as past traumas to her back. Previously expressed radiating sx with burning reported in central lower lumbar. Pt exhibits tightness of L hip flexor, (+) pain with passive hip flexion, limited HS flexibility, and tolerance for passive hip flexion/ROM of the L hip due to pain in her lumbar spine. Pt has begun to plateau in progress with PT. She has received trial of MET> correction of rotated SI joint, been issued stabilization/flexibility program with some short term limited gains. Pt has been encouraged to trial aquatic program. She enjoys running as a recreation but has backed off lane to the severity of her sx. She reports intolerance for sitting on stationary bike due to SI sx. She may benefit from MRI and or referral to vocational services specialist in effort to obtain additional imaging due to plateaued progress with PT. In the past she has made good progress with PT and is compliant with her program. Due to ongoing severity of her back pain, limited gain/relief with treatment, physical demands, and daily limitations, therapist is recommending referral/additional imaging as noted above. She will be seeing her PCP (Noreen Mandel, DNP_) in the coming weeks. PELVIC ASYMM NOTED, ED RE BODY MECH AND SYMMETRICAL WB IN SIT/STAND. TO SEE PRIMARY PT NEXT VISIT FOR REVIEW AND DECISION RE FURTHER VISITS PT Plan: Follow up with primary care provider. Pt may benefit from MRI and or referral to vocational services specialist/pain management. She has trialed PT with limited gains for lumbar stab, stretches for hip flexor, has ongoing SI sx unrelieved with MET/ postural correction. Short Term Goals: 1. Pt will centralize L lateral hip pain to upper buttocks. 2. Pt will demonstrate strength R hip abductors to 4+/5. 3. Pt will exhibit negative lumbar instability testing. 4. Improve hip flexor flexibility by 25%. Veterinary Bacteriologist Goals: 1. Strength R>L hip abd 5/5. 2. Resume jogging 2 miles without sx back pain >2/10. 3. I HEP for body mechanics/self care. 4. Resume sleeping MOD I with sx <2/10. 5. Negative lumbar instability. 6. SLS 10 seconds with good core strength/no valgus of knees. Electronically signed by: Yvonne Herrera, PT, DPT
== END 2024-02-28 08:53 | disposition home or self-care (01) ==
LOC: HO.PTWFD 14:00
PROVIDERS: PCP Nurse Practitioner Family; Visit Provider Family Medicine
DX: M54.50 Low back pain, unspecified (principal); M25.552 Pain in left hip
CPT/HCPCS: 97110; 97140; 97161; 97535

== ENCOUNTER → 2024-02-02 08:11 | Outpatient (REF) | payer OTHER, SELFPAY | LOC: HO.SL 08:11 | PROVIDERS: PCP Nurse Practitioner Family; Visit Provider Nurse Practitioner Family | DX: R53.83 Other fatigue (principal); G47.10 Hypersomnia, unspecified; R06.83 Snoring | CPT/HCPCS: 95806 ==

== ENCOUNTER → 2024-02-02 08:23 | Outpatient (BNV) | payer OTHER, SELFPAY | PROVIDERS: PCP Nurse Practitioner Family; Visit Provider Psychiatry & Neurology Neurology | DX: R06.83 Snoring (principal); G47.10 Hypersomnia, unspecified | CPT/HCPCS: 95806 ==

== ENCOUNTER 2024-02-07 09:15 | Outpatient (AMB) | payer OTHER, SELFPAY ==
--- NOTE | 2024-02-07 09:19 | MHC.PC.OV ---
Vital Signs 02/07/24 09:22 Height 5 ft 8 in Weight 185 lb 4 oz BMI 28.2 BP 98/64 Blood Pressure Location Rt brachial Position Sitting Respiration 12 Pulse 97 Pulse Source Pulse Oximeter Temp 98.4 F Temp Source Oral Pulse Oximetry (%) 99 Oxygen Delivery Method Room Air Intake Visit Reasons: 6 weeks, fu lab tests and sleep study Intake Note: Six week follow up. Was doing PT and they recommended MRI, information security specialist, pain management. Note in chart. Immigration Paralegal Required: No Allergies No Known Allergies Allergy (Verified 12/23/23 13:29) Medication List - Last Reconciled 02/07/24 by CATHERINE Zelaya fluocinolone and shower cap 0.01 % ea topical hydrocortisone 1% (Anti-Itch (hydrocortisone)) 1 appl topical BID-TID PRN ketoconazole 2% topical mometasone 0.1% topical ibdafpcwwjgf-Ly-nxms-minerals tabs PO Tobacco use date assessed: 08/05/23 Dental Screening Dental Screen Date: 06/28/23 HPI HPI Comments History of Present Illness Details 28-year-old female generalized anxiety disorder, MDD polyarthralgia, HPV, hyperlipidemia Here today for fu: The below labs were reviewed w/ her today Labs from 12/28/2023 show a normal CBC, normal lytes, normal renal function, A1c 5.4, normal LFTs, elevated total cholesterol 257, LDL 190, HDL 52, vitamin B12 943, normal folate, normal urine microalbumin creatinine ratio, negative mono, Streptolysin AB elevated 491, IG A, M and G WNL Vitamin-D normal Sleep study appt done on Wednesday - no results available yet Has not scheduled ENT advised today to schedule appt for recurrent pharyngitis. Currently Asx. PT recommended imaging vs referral to pain mgmt for ongoing L hip and low back pain that has failed PT. Labs reviewed today + Streptolysin AB , LDL 190 Plan: Start Atorvastatin 20mg QD, repeat fasting labs 3 months. Refer to anesthesiologists' assistant Refer to pain mgmt at [facility] for eval and tx , defer imaging to them Make appt w/ ENT to eval recurrent strep + streptolysin AB RTO 3 months [facility] Medical History (Updated 02/07/24 @ 13:19 by CATHERINE Zelaya) Anxiety and depression Racing heart beat Polyarthralgia Surgical History [place] teeth extracted Hx of removal of cyst Family History Maternal Grandmother Cancer Maternal Grandmother Cancer Paternal Aunt Cancer Other Mental health disorder Substance use disorder Social History Housing: Apartment Alcohol intake: current Patient Tobacco Use Status: Former Tobacco user e-Cigarette/Vaping Use: Never Used Second Hand Smoke Exposure: No service: Yes Current occupational status: employed Cognitive needs: No Hearing needs: No Vision needs: Yes (Glasses) Questionnaire Thrive Questionnaire Date Thrive assessed: 05/05/21 RAFAEL-7 AMB Questionnaire RAFAEL-7 Date RAFAEL - 7 assessed: 08/05/23 Source: Developed by Drs. Karthik Chirinos, Susannah Tom, Davin Silver and colleagues, with an educational santos from [employer] Review of Systems Const All systems reviewed & are unremarkable except as noted in HPI and below Physical exam (Primary Care) Vital Signs: Last Vital Signs Temp 98.4 F 02/07/24 09:22 Pulse 97 02/07/24 09:22 Resp 12 02/07/24 09:22 BP 98/64 02/07/24 09:22 Pulse Ox 99 02/07/24 09:22 Oxygen Delivery Method Room Air 02/07/24 09:22 BMI result Body Mass Index 28.2 Tobacco/Smoking Status: Tobacco use Status Tobacco use date assessed 08/05/23 02/07/24 09:19 Patient Tobacco Use Status Former Tobacco user 02/07/24 09:19 e-Cigarette/Vaping Use Never Used 02/07/24 09:19 Thrive Assessment: Date of Thrive Assessment Date Thrive assessed 05/05/21 02/07/24 09:19 Const Other: awake alert NAD TM intact and clear bilat Pharynx WNL, no cervical adenopathy RRR LS CTAB Assessment and Plan Assessment & Plan (1) Hyperlipidemia: Code(s): E78.5 - Hyperlipidemia, unspecified Qualifiers: Hyperlipidemia type: mixed hyperlipidemia Qualified Code(s): E78.2 - Mixed hyperlipidemia (2) Recurrent streptococcal pharyngitis: Comment: Refer to ENT Code(s): J02.0 - Streptococcal pharyngitis (3) Low back pain: Code(s): M54.50 - Low back pain, unspecified Qualifiers: Chronicity: chronic Back pain laterality: left Sciatica presence: without sciatica Qualified Code(s): M54.50 - Low back pain, unspecified; G89.29 - Other chronic pain (4) Left hip pain: Code(s): M25.552 - Pain in left hip Plan This note is constructed using voice recognition software. While every effort has been made to ensure accuracy in migratory worker, still errors may have been included Sometimes, these errors may affect the content or meaning of the given sentence . Total time spent caring for the patient today was 45 minutes. This includes time spent before the visit reviewing the chart, time spent during the visit, and time spent after the visit on documentation Orders: Orders Lipid Panel 05/08/24 E78.5 - Hyperlipidemia, unspecified Comprehensive [place]. Panel Fast 05/08/24 E78.5 - Hyperlipidemia, unspecified Referrals Pain Management Referral M25.552 - Pain in left hip, M53.3 - Sacrococcygeal disorders, not elsewhere classified, M54.50 - Low back pain, unspecified Nutrition/Dietitian Referral E78.5 - Hyperlipidemia, unspecified Medications: New atorvastatin 20 mg PO BEDTIME 90 tabs 0RF Patient Instructions: Plan: Start Atorvastatin 20mg QD, repeat fasting labs 3 months. Refer to anesthesiologists' assistant Refer to pain mgmt at [facility] for eval and tx , defer imaging to them Make appt w/ ENT to eval recurrent strep + streptolysin AB I will advise you of sleep study results once available RTO 3 months Coding Level of Care Code Est Pt Level 5 (60154) Diagnoses Mixed hyperlipidemia E78.2 Hyperlipidemia type: mixed hyperlipidemia Recurrent streptococcal pharyngitis J02.0 Chronic left-sided low back pain without sciatica M54.50; G89.29 Chronicity: chronic Back pain laterality: left Sciatica presence: without sciatica Left hip pain M25.552
[2024-02-07 09:22] VITALS: BP 98/64; PULSE 97; RESP 12; TEMP 36.9; O2SAT 99; BMI 28.2
== END 2024-02-07 09:52 | disposition home or self-care (01) ==
PROVIDERS: PCP Nurse Practitioner Family; Visit Provider Nurse Practitioner Family
DX: E78.2 Mixed hyperlipidemia (principal); J02.0 Streptococcal pharyngitis; M54.50 Low back pain, unspecified; G89.29 Other chronic pain; M25.552 Pain in left hip
CPT/HCPCS: 99215

== ENCOUNTER 2024-03-01 11:33 | Outpatient (REF) | payer OTHER, SELFPAY ==
--- NOTE | ~2024-03-01 | XR_ITS ---
EXAMINATION: XR LUMBOSACRAL SPINE WITH OBLIQUES CLINICAL INFORMATION: Spondylosis without myelopathy or radiculopathy. Pain in left hip and lower back. COMPARISON: Lumbar spine December 05, 2020 TECHNIQUE: AP, both oblique, and lateral views of the lumbar spine. Lateral view of the lumbosacral junction. FINDINGS: There are 6 nonrib-bearing lumbar vertebrae. No focal bone lesion. No fracture. No subluxation. Alignment of vertebrae is normal. No significant degenerative change. Lumbar disc heights and facet joints are normal. Normal sacroiliac joints. XR/XR lumbar spine 4V min IMPRESSION: Normal lumbar spine.
--- NOTE | ~2024-03-01 | XR_ITS ---
EXAMINATION: XR HIP, LEFT Pelvis CLINICAL INFORMATION: Pain in left hip COMPARISON: None available. TECHNIQUE: Two views of the left hip. Single view the pelvis FINDINGS: The bones joints and soft tissues in the left hip and pelvis are normal. No fracture or degenerative change. XR/XR hip LT w PEL1V IMPRESSION: Normal left hip and pelvis.
== END 2024-03-01 11:34 | disposition home or self-care (01) ==
LOC: HO.XRAY 11:33
PROVIDERS: PCP Nurse Practitioner Family; Referring Provider Nurse Practitioner Family; Visit Provider Registered Nurse Emergency
DX: M47.816 Spondylosis without myelopathy or radiculopathy, lumbar region (principal); M25.551 Pain in right hip; E78.2 Mixed hyperlipidemia
CPT/HCPCS: 62370; 72110; 73502; 97802; 99212

== ENCOUNTER 2024-03-01 11:33 | Outpatient (AMB) | payer OTHER, SELFPAY ==
--- NOTE | 2024-03-01 11:39 | MHC.OFFVIS ---
Vital Signs 03/01/24 11:40 Height 5 ft 8 in Weight 189 lb BMI 28.7 BP 103/60 Blood Pressure Location Lt brachial Position Sitting Respiration 14 Pulse 72 Pulse Source Pulse Oximeter Pulse Oximetry (%) 100 Oxygen Delivery Method Room Air Intake Visit Reasons: Low back pain, unspecified Allergies No Known Allergies Allergy (Verified 03/01/24 11:41) Medication List - Last Reconciled 03/01/24 by Mary Steinberg LPN atorvastatin 20 mg PO BEDTIME fluocinolone and shower cap 0.01 % ea topical hydrocortisone 1% (Anti-Itch (hydrocortisone)) 1 appl topical BID-TID PRN ketoconazole 2% topical mometasone 0.1% topical HPI Comments Details: Cherelle is a very pleasant 28-year-old female who presents the office today for evaluation management of her chronic lower back pain Patient endorses pain to left lower back for greater than 2 years. Pain over left PSIS with some radiation laterally to hip and posterior thigh. Denies weakness numbness tingling burning stabbing shooting electrical pains down either lower extremity Pain today is rated as a 6/10, worse at night Exacerbated by sitting for lengthy periods of time and movement/activity. 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 Denies red flag symptoms including new loss of bowel, bladder or saddle anesthesia. Completed PT 2 years ago and again recently. Just finished most recent physical therapy approximately 2 weeks ago. Patient has tried nonsteroidal anti-inflammatory medication which gave her some relief but ultimately the pain persisted. She is tried prescription pain medication and muscle relaxers in the past all without relief of her pain. Some improvement with heat and ice but pain then returns. In terms of muscle damage condition is described as jumping, shooting, tugging, pulling, reaching, dull, sore, hurting, aching, tiring, exhausting, spreading, piercing Pain is negatively impacting patient's sleep, work and ability to perform activities of daily living. Patient vapes nicotine, denies current use of tobacco or illicit substances. Endorses social alcohol use. Denies current use of anticoagulation medication Denies implantable devices, pacemaker defibrillator [facility] Medical History (Updated 03/01/24 @ 12:55 by Svitlana Kate, SUPERVISOR CLOTH WINDING, EXPERIMENTAL DISPLAY BUILDER) Anxiety and depression Racing heart beat Polyarthralgia Surgical History [place] teeth extracted Hx of removal of cyst Family History Maternal Grandmother Cancer Maternal Grandmother Cancer Paternal Aunt Cancer Other Mental health disorder Substance use disorder Social History Housing: Apartment Alcohol intake: current Patient Tobacco Use Status: Former Tobacco user e-Cigarette/Vaping Use: Never Used Second Hand Smoke Exposure: No service: Yes Current occupational status: employed Cognitive needs: No Hearing needs: No Vision needs: Yes (Glasses) Review of Systems Const All systems reviewed & are unremarkable except as noted in HPI and below Physical Exam Vital Signs: Last Vital Signs Pulse 72 03/01/24 11:40 Resp 14 03/01/24 11:40 BP 103/60 03/01/24 11:40 Pulse Ox 100 03/01/24 11:40 Oxygen Delivery Method Room Air 03/01/24 11:40 BMI result Body Mass Index 28.7 General: awake, alert, oriented. Answers questions appropriately. Fully engaged in examination. Skin: warm, dry, intact HEENT: Normocephalic. Hearing intact. Cardiac: External chest normal in appearance. Respiratory: No cough, audible wheezing or stridor. Abdomen: without gross distension. MS: No obvious swelling or deformities. Able to stand on bilateral tiptoes and bilateral heels.? Able to transition from sit to stand unassisted. Ambulates with bilaterally normal heel strike and toe off SLR negative bilaterally Tender over left PSIS Minimally tender over midline lumbar vertebrae and lumbar paraspinal muscles on the left side [place] positive on the left Thigh thrust positive SI compression positive on left Minimal discomfort with external rotation of left hip Neurological: Oriented to person, place, time and situation. Thought process intact. No gait abnormalities appreciated. Psychiatric: Appropriate mood and affect. Good judgment and insight. Results Reviewed Results Reviewed: 12/05/2020 XR/XR lumbar spine 2-3V FINDINGS: There are 6 nonrib-bearing lumbar vertebral bodies. No fracture or subluxation. Vertebral body height and alignment are maintained. Disc spaces are maintained. The sacroiliac joints are symmetric. The visualized sacrum is intact. There is an IUD noted at the central pelvis. The bowel gas pattern is unremarkable. IMPRESSION: 6 nonrib-bearing lumbar vertebral bodies. Otherwise normal appearance. 04/21/2021: XR/XR sacrum coccyx min 2V FINDINGS: Sacrum and Coccyx: No acute fracture or subluxation. No joint space narrowing or marginal osteophytes. No osseous erosion. IUD within the pelvis. Left Foot: No acute fracture or dislocation. No joint space narrowing or marginal osteophytes. No osseous erosion. No abnormal soft tissue calcification. IMPRESSION: SACRUM AND COCCYX: Unremarkable examination. Assessment & Plan Assessment & Plan (1) Lumbar spondylosis: Code(s): M47.816 - Spondylosis without myelopathy or radiculopathy, lumbar region Category: Medical (2) Sacroiliac joint dysfunction of left side: Code(s): M53.3 - Sacrococcygeal disorders, not elsewhere classified Category: Medical (3) Left hip pain: Code(s): M25.552 - Pain in left hip Category: Medical Plan Cherelle is a very pleasant 28-year-old female who presented to the office today for evaluation management of her chronic left lower back pain X-ray lumbar spine ordered X-ray left hip with pelvis ordered MRI of the lumbar spine without contrast ordered for evaluation. Patient with intractable back pain ongoing for greater than 2 years which is refractory to conservative therapy including multiple attempts at physical therapy, home exercise program, nonsteroidal anti-inflammatory medications, heat, ice and prescription medications Cyclobenzaprine 5 mg p.o. t.i.d. as needed. Patient advised on cautions for use. All questions and concerns were answered, patient agrees with the plan. Follow up after MRI, sooner if needed Orders: Orders XR lumbar spine 4V min Today M47.816 - Spondylosis without myelopathy or radiculopathy, lumbar region MR lumbar spine wo con Today M54.9 - Dorsalgia, unspecified Medications: New cyclobenzaprine No driving while taking this medication, do not take with alcohol or other CYLINDER GRINDER depressants 5 mg PO TID PRN 30 tabs 0RF muscle spasm Coding Level of Care Code New Pt Level 4 (07545) Diagnoses Lumbar spondylosis M47.816 Sacroiliac joint dysfunction of left side M53.3 Left hip pain M25.552
[2024-03-01 11:40] VITALS: BP 103/60; PULSE 72; RESP 14; O2SAT 100; BMI 28.7
== END 2024-03-01 12:22 | disposition home or self-care (01) ==
PROVIDERS: PCP Nurse Practitioner Family; Referring Provider Nurse Practitioner Family; Visit Provider Registered Nurse Emergency
DX: M47.816 Spondylosis without myelopathy or radiculopathy, lumbar region (principal); M53.3 Sacrococcygeal disorders, not elsewhere classified; M25.552 Pain in left hip; Z45.1 Encounter for adjustment and management of infusion pump
CPT/HCPCS: 62370; 99214

== ENCOUNTER 2024-03-01 14:16 | Outpatient (AMB) | payer OTHER, SELFPAY ==
[2024-03-01 14:23] VITALS: BMI 28.7
--- NOTE | 2024-03-01 14:23 | A.OFFVIS_ITS ---
VS Expanded 03/01/24 14:23 Height 5 ft 8 in Weight 188 lb 11.451 oz BMI 28.7 Intake Visit Reasons: hyperlipidemia/LVM Allergies No Known Allergies Allergy (Verified 03/01/24 11:41) Nutrition Presentation Details: Pt presents for MNT for hypercholesterolemia. Pt was referred by PCP, KHenrik O'Co nnor BS Monitoring Most Recent Diabetes Results: Microalb/Creat Ratio TNP 12/28/23 Cholesterol 257 mg/dL (<200) H 12/28/23 HDL Cholesterol 52 mg/dL (>40) 12/28/23 Triglycerides 75 mg/dL (<150) 12/28/23 Creatinine 0.78 mg/dL (0.5-1.4) 12/28/23 Blood Urea Nitrogen 18 mg/dL (9-16) H 12/28/23 Sodium 138 mmol/L (135-145) 12/28/23 Potassium 4.1 mmol/L (3.3-5.1) 12/28/23 Chloride 105 mmol/L (96-108) 12/28/23 Carbon Dioxide 27 mmol/L (22-29) 12/28/23 Calcium 9.3 mg/dL (8.4-10.2) 12/28/23 AST 15 U/L (5-31) 12/28/23 ALT 13 U/L (0-31) 12/28/23 Total Protein 7.7 g/dL (6.5-8.0) 12/28/23 Albumin 4.4 g/dL (3.5-5.0) 12/28/23 IPJ-Sfxnfvh-Tr.Jeor Equation Height: 5 ft 8 in Weight: 189 lb Resting Metabolic Rate: 1632.25 Calculated Activity Level: Moderate Activity Calories Needed to Maintain Weight: 2529.99 Diagnosis Nutrition problem #1: food nutri know defi As related to (etiology) #1: diagnosis As evidenced by (sign/symptom) #1: knowledge deficit of diet [facility] Medical History (Updated 03/01/24 @ 12:55 by Svitlana Kate APRN, INFORMATION SYSTEMS COORDINATOR) Anxiety and depression Racing heart beat Polyarthralgia Surgical History [place] teeth extracted Hx of removal of cyst Family History Maternal Grandmother Cancer Maternal Grandmother Cancer Paternal Aunt Cancer Other Mental health disorder Substance use disorder Social History Housing: Apartment Alcohol intake: current Patient Tobacco Use Status: Former Tobacco user e-Cigarette/Vaping Use: Never Used Second Hand Smoke Exposure: No service: Yes Current occupational status: employed Cognitive needs: No Hearing needs: No Vision needs: Yes (Glasses) Assessment & Plan Assessment & Plan (1) Hyperlipidemia: Code(s): E78.5 - Hyperlipidemia, unspecified Category: Medical Qualifiers: Hyperlipidemia type: mixed hyperlipidemia Qualified Code(s): E78.2 - Mixed hyperlipidemia Plan: Wt: 86 Kg ( 03/2024 ) Est kcal needs as per MSJ: 2500 (40% carb, 30% protein/fat) Est fluid needs as per 25-30 ml/d: 2600 Est prot per day as per 1 g/kg bw: 86 Recommend fiber intake : 8-10 g per day and gradually increase to 25-28 g per day for women and 35-38 g for men or as tolerated Recommend sodium intake per day : less than 2000 mg Educated patient on: ( R = reviewed V = verbalizes understanding N/R = needs review N/A = not applicable * Food sources of carbohydrate, adequate serving sizes and its role in various health conditions: v * Differences between complex carbohydrates a simple carbohydrates, role of fiber in diet: R * Lean protein sources of foods: R V NR * Differences between types of fats and role in diet (mono on saturated fat fatty acids, saturated fatty acids, trans fats): R * Food sources of sodium in salt and healthy modifications for heart health in kidney health: R V R/V * Vitamins and minerals: R V N/R * Healthy plate method concept: R * Physical activity: Benefits a precaution: R Patient Instructions: Reduce on saturated fats (tropical oils/palm/coconut, highly processed foods , previously prefried foods Increase fiber in your diet , seeds/nuts/veg/whole grains, see meal ideas as reference increase water as you increase fiber to prevent constipation Coding Level of Care Code Nutr Indiv Intake (90669) Diagnoses Mixed hyperlipidemia E78.2 Hyperlipidemia type: mixed hyperlipidemia Time Spent (min) 30
[2024-03-07 10:56] VITALS: BMI 28.7
== END 2024-03-01 14:52 | disposition home or self-care (01) ==
PROVIDERS: PCP Nurse Practitioner Family; Visit Provider Dietitian, Registered
DX: E78.2 Mixed hyperlipidemia (principal)

== ENCOUNTER 2024-05-29 07:56 | Outpatient (REF) | payer OTHER, SELFPAY ==
[2024-05-29 11:45] LABS: Alanine Aminotransferase 10 U/L (0-31); Albumin Level 4.3 g/dL (3.5-5.0); Alkaline Phosphatase 45 U/L (39-117); Anion Gap 11 (12-20); Aspartate Amino Transferase 15 U/L (5-31); Bilirubin Total 0.6 mg/dL (0.0-1.0); Blood Urea Nitrogen 15 mg/dL (9-16); Calcium 9.4 mg/dL (8.4-10.2); Carbon Dioxide 27 mmol/L (22-29); Chloride 105 mmol/L (96-108); Cholesterol 205 mg/dL (<200); Estimated Glomerular Filt Rate > 60; Glucose Fasting 90 mg/dL (60-99); HDL Cholesterol 50 mg/dL (>40); LDL Cholesterol Calculated 129 mg/dL (<100); Potassium 4.5 mmol/L (3.3-5.1); Sodium 138 mmol/L (135-145); Total Protein 7.5 g/dL (6.5-8.0); Triglycerides 131 mg/dL (<150)
== END 2024-05-29 07:57 | disposition home or self-care (01) ==
LOC: HO.WFDLDS 07:56
PROVIDERS: Visit Provider Nurse Practitioner Family
DX: E78.5 Hyperlipidemia, unspecified (principal)
CPT/HCPCS: 36415; 80053; 80061

== ENCOUNTER 2024-06-02 16:35 | Outpatient (AMB) | payer OTHER, SELFPAY ==
--- NOTE | 2024-06-02 16:14 | A.OFFPC_ITS ---
Intake Visit Reasons: follow up labs Armor Officer Required: No Patient : No Allergies No Known Allergies Allergy (Verified 06/02/24 16:16) Medication List - Last Reconciled 06/02/24 by SHAYNE ZelayaP- cyclobenzaprine 5 mg PO TID PRN fluocinolone and shower cap 0.01 % ea topical hydrocortisone 1% (Anti-Itch (hydrocortisone)) 1 appl topical BID-TID PRN ketoconazole 2% topical mometasone 0.1% topical Tobacco use date assessed: 06/02/24 Dental Screening Dental Screen Date: 06/28/23 HPI HPI Comments History of Present Illness Details 28-year-old female generalized anxiety d isorder, MDD polyarthralgia, HPV, hyperlipidemia Telehealth to f/u on HLD Since last office visit, she quit smoking. 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 Wt is stable. Did not start statin as she did not want to have to take medications. Repeat labs are greatly improved! She will be Relocating to [place] Jun. Labs from 05/29/2024 show stable electrolytes, stable renal function, fasting glucose 90, normal calcium, normal LFTs, improved total cholesterol 205, improved LDL 129, HDL 50, triglycerides elevated at 131 however within normal limits Plan: Cont lifestyle mods Recommend repeat lipid profile in 9-12 months Applauded smoking cessation efforts. Best of luck with your move! This note is constructed using voice recognition software. While every effort has been made to ensure accuracy in occupational health professional, still errors may have been included Sometimes, these errors may affect the content or meaning of the given sentence . Total time spent caring for the patient today was 20 minutes. This includes time spent before the visit reviewing the chart, time spent during the visit, and time spent after the visit on documentation [facility] Medical History (Updated 03/01/24 @ 12:55 by Svitlana Kate APRN, ARMAMENT INSTALLER) Anxiety and depression Racing heart beat Polyarthralgia Surgical History [place] teeth extracted Hx of removal of cyst Family History Maternal Grandmother Cancer Maternal Grandmother Cancer Paternal Aunt Cancer Other Mental health disorder Substance use disorder Social History (Reviewed 04/10/24 @ 09:50 by MARISOL Brewer Housing: Apartment Alcohol intake: current Patient Tobacco Use Status: Former Tobacco user e-Cigarette/Vaping Use: Never Used Second Hand Smoke Exposure: No service: Yes Current occupational status: employed Cognitive needs: No Hearing needs: No Vision needs: Yes (Glasses) Questionnaire Thrive Questionnaire Date Thrive assessed: 05/05/21 RAFAEL-7 AMB Questionnaire RAFAEL-7 Date RAFAEL - 7 assessed: 08/05/23 Source: Developed by Drs. Karthik Chirinos, Susannah Tom, Davin Silver and colleagues, with an educational santos from [employer]. Physical exam (Primary Care) Tobacco/Smoking Status: Tobacco use Status Tobacco use date assessed 08/05/23 02/10/24 14:42 Patient Tobacco Use Status Former Tobacco user 02/10/24 14:42 e-Cigarette/Vaping Use Never Used 02/10/24 14:42 Are you ready to quit: Yes Tobacco cessation counseling provided: Yes Items discussed: Other Relapse Prevention: discussed the importance of a supportive environment, discussed extending NRT, discussed negative mood or depression after quitting, weight gain after smoking is common and discussed dietary, exercise and/or lifestyle changes Thrive Assessment: Date of Thrive Assessment Date Thrive assessed 05/05/21 02/10/24 14:42 Telehealth Telehealth Telehealth Platform: Telephone Location of provider rendering services: practice address Location of patient: address on file Patient Identification confirmed using: Name, : Yes Telehealth method: voice only Patient verbally consented to treatment: Yes Patient verbally consented to billing insurance company: Yes Patient informed of any privacy concerns related to visit: Yes Assessment and Plan Assessment & Plan (1) Hyperlipidemia: Code(s): E78.5 - Hyperlipidemia, unspecified Qualifiers: Hyperlipidemia type: mixed hyperlipidemia Qualified Code(s): E78.2 - Mixed hyperlipidemia (2) Former smokeless tobacco use: Code(s): Z87.891 - Personal history of nicotine dependence Patient Instructions: Smoking Cessation How to Quit There are a lot of ways to quit smoking and many resources to help you. Family members, friends, and co-workers may be supportive or encouraging, but to be successful the desire and commitment to quit must be your own. Most people who have been able to successfully quit smoking made at least one unsuccessful attempt in the past. Try not to view past attempts to quit as failures, but rather as learning experiences. Stopping smoking or using smokeless tobacco is difficult, but anyone can do it. Know the symptoms to expect when you stop. Common symptoms include: ? An intense craving for nicotine ? Anxiety, tension, restlessness, frustration, or impatience ? Difficulty concentrating ? Drowsiness or trouble sleeping, as well as bad dreams and nightmares ? Drowsiness and trouble sleeping ? Headaches ? Increased appetite and weight gain ? Irritability or depression How severe your symptoms are depends on how long you smoked and how many cigarettes you smoked each day. Feel ready to quit? ? First and foremost, set a quit date and quit completely on that day. Before your quit date, you may begin reducing your cigarette use. But remember, there is no safe level of cigarette s moking. ? List the reasons why you want to quit. Include both short- and long-term benefits. ? Identify the times you are most likely to smoke. For example, do you tend to smoke when feeling stressed or down? When out at night with friends? While drinking coffee or alcohol? When bored? While driving? Right after a meal or sex? During a work break? While watching TV or playing cards? When you are with other smokers? ? Let all of your friends, family, and co-workers know of your plan to stop smoking and your quit date. Just being aware that they know what you're going through can be helpful, especially when you are grumpy. ? Get rid of all your cigarettes just before the quit date, and clean out anything that smells like smoke, such as clothes and furniture. Make a plan about what you will do instead of smoking at those times when you are most likely to smoke. ? Be as specific as possible. For example, drink tea instead of coffee -- tea may not trigger the desire for a cigarette. Or, take a walk when you feel stressed. ? Remove ashtrays and cigarettes from the car. Place pretzels or hard candies there instead. Pretend-smoke with a straw. ? Find activities that focus your hands and mind but are not taxing or fattening. Computer games, solitaire, knitting, sewing, and crossword puzzles may help. ? If you normally smoke after eating, find other ways to end a meal. Play a tape or CD, eat a piece of fruit, get up and make a phone call, or take a walk (a good distraction that also chakraborty calories). Make other changes in your lifestyle. ? Change your daily schedule and habits. Eat at different times or eat several small meals instead of three large ones. Sit in a different chair or even a different room. ? Satisfy your oral habits by eating celery or other low-calorie snack, chewing sugarless gum, or sucking on a cinnamon stick. ? Go to public places and restaurants where smoking is prohibited or restricted. ? Eat regular meals and don't eat too much candy or sweet things. ? Get more exercise. Take walks or ride a bike. Exercise helps relieve the urge to smoke. Set short-term quitting goals and reward yourself when you meet them. ? Every day, put the money you normally spend on cigarettes in a jar. Then buy something pleasurable after a period of time. ? Try not to think about all the days ahead you will need to avoid smoking. Take it one day at a time. ? Even one puff or one cigarette will make your desire for more cigarettes even stronger. However, it is normal to make mistakes. So even if you have one cigarette, you don't need to take the next one. Other tips to help you quit smoking and stick to it: ? Enroll in a smoking cessation program (hospitals, health departments, community centers, and work sites often offer programs). Learn about self-hypnosis or other techniques. ? Ask your health care provider about prescription medications that are safe and appropriate for you. ? Find out about nicotine patches, gum, and sprays. The [place] [employer]'s web site -- www.cancer.org -- is an excellent resource for smokers who are trying to quit, and the [employer] [place] [employer] can help some smokers kick the habit. Above all, don't get discouraged if you aren't able to quit smoking the first time. Nicotine addiction is a hard habit to break. Try something different next time. Develop new strategies, and try again. Many people take several attempts to finally kick the habit. To reduce low-density lipoprotein (LDL) cholesterol, you can try making lifestyle changes to your diet, exercise, and other habits: Eat a heart-healthy diet Limit saturated and trans fats, and eat more foods with healthy fats, like nuts, seeds, and unsaturated oils. You can also try eating more soluble fiber, which can help reduce the amount of cholesterol your body absorbs. Foods high in soluble fiber include whole grains, fruits, and legumes. Exercise regularly Aim for at least 150 minutes of exercise per week, such as walking, swimming, or cycling. Maintain a healthy weight Losing weight can help lower LDL cholesterol, especially if you are overweight or obese. Manage stress Chronic stress can raise LDL cholesterol, so try to find healthy ways to manage it. Quit smoking Smoking can raise cholesterol and increase the risk of serious health problems. Get enough sleep Aim for 7 to 9 hours of sleep per night. You should also limit foods with cholesterol, which are found in animal products like liver, egg yolks, and whole milk dairy products. Coding Level of Care Code Tele Est Pt Level 2 (22710) Diagnoses Mixed hyperlipidemia E78.2 Hyperlipidemia type: mixed hyperlipidemia Former smokeless tobacco use Z87.891
== END 2024-06-02 16:44 | disposition home or self-care (01) ==
LOC: HO.HMCFM 16:35
PROVIDERS: PCP Nurse Practitioner Family; Visit Provider Nurse Practitioner Family
DX: E78.2 Mixed hyperlipidemia (principal); Z87.891 Personal history of nicotine dependence

== ENCOUNTER → 2024-06-02 16:35 | Outpatient (BNVA) | payer OTHER, SELFPAY | PROVIDERS: PCP Nurse Practitioner Family; Visit Provider Nurse Practitioner Family ==